=== PATIENT | male | born 1985 | race Two or more races ===

== ENCOUNTER 2023-10-01 07:22 | Outpatient (OUT) | payer OTHER, SELFPAY ==
[2023-10-01 07:55] LABS: Basophils Absolute Auto 0.1 10^3/uL (0.0-0.1); Eosinophils Absolute Auto 0.3 10^3/uL (0.0-0.7); Eosinophils Percent Auto 5.6 % (0.9-7.0); Hematocrit 42.6 % (42.0-54.0); Hemoglobin 13.7 g/dL (14.0-18.0); Immature Granulocytes Abs Auto 0.03 10^3/uL (0.00-0.03); Immature Granulocytes Pct Auto 0.5 % (0.0-0.5); Lymphocytes Absolute Auto 2.5 10^3/uL (1.2-3.8); Lymphocytes Percent Auto 42.4 % (20.5-60.0); Mean Corpuscular HGB Conc 32.2 g/dL (29.9-35.2); Mean Corpuscular Hemoglobin 29.3 pg (25.9-34.0); Mean Platelet Volume 10.8 fL (9.5-13.5); Monocytes Absolute Auto 0.6 10^3/uL (0.3-0.8); Monocytes Percent Auto 9.3 % (1.7-12.0); Neutrophils Absolute Auto 2.5 10^3/uL (1.4-6.5); Neutrophils Percent Auto 41.2 % (43.0-75.0); Platelet Count 143 10^3/uL (150-450); Red Blood Count 4.68 10^6/uL (4.70-6.10); Red Cell Distribution Width 12.6 % (11.0-15.0); White Blood Count 5.9 10^3/uL (4.0-11.0)
[2023-10-01 09:08] LABS: Estimated Average Glucose 177 mg/dL; Glycohemoglobin A1C 7.8 % (4.5-6.2)
[2023-10-01 09:23] LABS: Alanine Aminotransferase 94 U/L (16-63); Albumin Globulin Ratio 0.9; Albumin Level 3.5 g/dL (3.4-5.0); Alkaline Phosphatase 112 U/L (46-116); Anion Gap 10.7; Aspartate Amino Transferase 37 U/L (15-37); BUN Creatinine Ratio 21.6; Bilirubin Total 0.5 mg/dL (0.2-1.0); Calcium 8.4 mg/dL (8.5-10.1); Carbon Dioxide 30.1 mmol/L (21.0-32.0); Chloride 101 mmol/L (98-107); Chol HDL Ratio 4.3; Cholesterol 190 mg/dL (<=200); Estimated GFR (African America >60 (>=60); Estimated GFR (Non-African Ame >60 (>=60); Glucose 175 mg/dL (74-106); HDL Cholesterol 44 mg/dL (40-60); Potassium 3.8 mmol/L (3.5-5.1); Sodium 138 mmol/L (136-145); Total Protein 7.5 g/dL (6.4-8.2); Triglycerides 178 mg/dL (<=150); VLDL CHOLESTEROL 35.6 mg/dL
== END 2023-10-01 07:23 | disposition home or self-care (01) ==
LOC: LAB 07:28
PROVIDERS: PCP Family Medicine; Visit Provider Family Medicine
DX: Z79.899 Other long term (current) drug therapy (principal); R53.83 Other fatigue; E78.5 Hyperlipidemia, unspecified; E11.9 Type 2 diabetes mellitus without complications
CPT/HCPCS: 36415; 80053; 80061; 83036; 85025

== ENCOUNTER 2024-03-04 14:28 | Outpatient (OUT) | payer OTHER, SELFPAY ==
--- NOTE | 2024-03-04 | VEIN_ITS ---
Patient Name: GILLES SHRESTHA MR#: [id number] : 1985 Exam Date: 03/04/2024 Ordering Doctor: DR Camilo Calvin . RADIOLOGY REPORT PROCEDURE: VC EXT VENOUS REFLUX SULEMA LMTD COMPARISON: None. INDICATIONS: Venous insufficiency I87.2 TECHNIQUE: Duplex imaging of the lower extremity to assess the deep and superficial venous system for the presence of deep or superficial venous incompetence and to document the location and severity of disease. The study includes evaluation of the great saphenous vein (GSV), anterior accessory saphenous vein (AASV) and small saphenous vein (SSV). Patient scanned in reverse Trendelenburg and standing. FINDINGS: RIGHT LOWER EXTREMITY: Saphenofemoral Junction Reflux: Yes 7.2mm 1.6 sec GSV: Diam (mm) Reflux/ Time (sec) Proximal Thigh 6.3 Yes 1.1 Mid Thigh 5.0 Yes 0.5 Distal Thigh 4.5 No Prox Calf 3.7 Yes 0.2 Mid Calf 3.0 Yes 1.6 Saphenopopliteal Junction Reflux: 6.8mm Yes 1.4 SSV: Proximal Calf 6.2 Yes 0.5 Mid Calf 4.1 Yes 0.4 AASV: Proximal Thigh 5.6 Yes 0.8 Mid Thigh 3.6 Yes 0.5 Distal Thigh Thrombi: No acute or chronic thrombus. Compressibility: Normal. Flow: Mild deep venous reflux. Preforator: Distal/medial lower leg 4.7 mm with 1.8s reflux. Tech Note: Incompetent varicose vein mid medial lower leg measures 4.3 mm with 0.5s reflux. Varicose vein distal medial lower leg measures 3.3 mm with 0.5s reflux. LEFT LOWER EXTREMITY: Saphenofemoral Junction Reflux: Yes 9.0 mm 4.0 sec GSV: Diam (mm) Reflux/Time (sec) Proximal Thigh 9.4 Yes 1.2 Mid Thigh 5.5 Yes 0.8 Distal Thigh 5.0 No Prox Calf 4.9 Yes 2.7 Mid Calf 4.4 Yes 0.5 Saphenopopliteal Junction Relux: 8.4 mm Yes 4.4 SSV: Proximal Calf 7.2 Yes 0.9 Mid Calf 5.0 Yes 0.5 AASV: Proximal Thigh 2.9 No Mid Thigh 2.1 Yes 0.2 Distal Thigh Thrombi: No acute or chronic thrombus. Compressibility: Normal. Flow: Mild deep venous reflux. Electrical Automation Engineer: Unremarkable. Tech Note: Incompetent varicose vein mid medial lower leg measures 3.5 mm with 0.5s reflux. CONCLUSION: 1. Moderate bilateral great saphenous vein venous insufficiency with dilatation and saphenofemoral junction reflux 2. Mild bilateral small saphenous and right anterior accessory saphenous vein venous insufficiency 3. Mild bilateral deep vein reflux 4. Bilateral incompetent varicose veins Dictated by: Tyler Weiner MD on 03/04/2024 at 16:02 Approved by: Tyler Weiner MD on 03/04/2024 at 16:09
== END 2024-03-04 14:29 | disposition home or self-care (01) ==
LOC: VC 14:29
PROVIDERS: PCP Family Medicine; Visit Provider Family Medicine
DX: I87.2 Venous insufficiency (chronic) (peripheral) (principal)
CPT/HCPCS: 93970